=== PATIENT | female | born 2000 | race Caucasian/White ===

== ENCOUNTER → 2025-06-27 12:42 | Outpatient (REF) | payer OTHER, SELFPAY | LOC: EMG 12:42 | PROVIDERS: ATTENDING PHYSICIAN Student in an Organized Health Care Education/Training Program; FAMILY PHYSICIAN Internal Medicine | DX: M54.2 Cervicalgia (principal); M54.12 Radiculopathy, cervical region; R20.0 Anesthesia of skin | CPT/HCPCS: 95886; 95909 ==